=== PATIENT | male | born 1995 | race Caucasian/White ===

== ENCOUNTER 2020-11-28 10:25 | Emergency (ER) | payer BC, SELFPAY ==
[2020-11-28 10:30] VITALS: BP 127/64; PULSE 63; RESP 18; TEMP 36.7; O2SAT 100
--- NOTE | 2020-11-28 10:51 | ED.EYEPROB ---
HPI - Eye Problem General Chief complaint: Eye Problems Stated complaint: swollen eye Time Seen by Provider: 11/28/20 10:43 Source: patient and RN notes reviewed Mode of arrival: ambulatory Limitations: no limitations History of Present Illness HPI Narrative: Patient presents today complaining of bilateral eye swelling, itching since yesterday. States the right eye started swelling before the left eye. Denies injury, pain, foreign body sensation, drainage. States due to a previous injury, he uses lubricating drops that he gets [id number]. He has been using Zyrtec occasionally, which she took this morning for seasonal allergies. chief complaint: other (Bilateral eye swelling and itching) Related Data Home Medications Medication Instructions Recorded Confirmed No Home Medications 11/28/20 11/28/20 Allergies Allergy/AdvReac Type Severity Reaction Status Date / Time No Known Allergies Allergy Verified 11/28/20 10:40 Review of Systems Review of Systems: Narrative: CONSTITUTIONAL: Denies body aches, fever, chills, or sweats. EYES: Denies visual changes, redness, or discharge.+ Bilateral eye swelling and itching ENT: Denies rhinorrhea, congestion, sore throat, or otalgia. CARDIOVASCULAR: Denies chest pain, palpitations, or edema. RESPIRATORY: Denies cough or dyspnea. GASTROINTESTINAL: Denies abdominal pain, nausea, vomiting, or diarrhea. GENITOURINARY: Denies dysuria or hematuria. SKIN: Denies rash, itching, or wounds. MUSCULOSKELETAL: Denies back pain, joint pain, or myalgia. NEUROLOGIC: Denies headache, numbness, tingling, or weakness. PSYCH: Denies depression or anxiety. [facility] Past Medical History Medical History (Updated 11/28/20 @ 11:07 by Ronna Marion, [facility], ) Seasonal allergies Comments At time of signature, I have reviewed and agree with nursing past medical, surgical, social and family history unless otherwise noted. Please see nursing chart for further information. There is no relevant family history pertinent to the presenting complaint Exam Narrative: Exam Narrative: GENERAL: Well-appearing, well-nourished, and in no acute distress. HEAD: Normocephalic, atraumatic. EYES: EOMI. PERRL. Bilateral slightly injected conjunctiva with chemosis. Bilateral upper and lower eyelids are mild to moderately edematous. Lashes normal. No drainage. ENT: Mucous membranes pink and moist. Nares clear. No rhinorrhea. TMs normal bilaterally. Throat normal. Uvula midline. NECK: Normal AROM. Supple. No lymphadenopathy. CHEST: No respiratory distress. EXTREMITIES: Normal range of motion. No edema. SKIN: Warm, dry, no rash. Capillary refill normal. Normal skin turgor. NEURO: No focal deficits. Alert and oriented x3. Gait steady. PSYCH: Normal affect. No signs of depression or anxiety. Course Vital Signs Vital signs: Vital Signs Temperature 98.1 F 11/28/20 10:30 Pulse Rate 63 11/28/20 10:30 Respiratory Rate 18 11/28/20 10:30 Blood Pressure 127/64 11/28/20 10:30 Pulse Oximetry 100 11/28/20 10:30 Temperature 98.1 F 11/28/20 10:30 Pulse Rate 63 11/28/20 10:30 Respiratory Rate 18 11/28/20 10:30 Blood Pressure 127/64 11/28/20 10:30 Pulse Oximetry 100 11/28/20 10:30 Reviewed. Pt has been instructed to follow up with his PCP regarding his elevated blood pressure today. MDM - Eye Problem Differential Diagnosis Differential diagnosis: Likely corneal abrasion, conjunctivitis and periorbital cellulitis Critical Care Time Critical Care Time Critical Care Time: No Discharge Plan Discharge Clinical Impression: Acute allergic conjunctivitis of both eyes Patient Disposition: Home, Self-Care Condition: Stable Instructions: Conjunctivitis (ED) Additional Instructions: Your symptoms are likely due to environmental allergies. Continue a daily antihistamine such as Zyrtec, Claritin, Tarsha, or Xyzal. Try an antihistamine eyedrop such as Zaditor or
== END 2020-11-28 10:55 | disposition home or self-care (01) ==
PROVIDERS: Emergency Provider Nurse Practitioner; PCP Internal Medicine
DX: H10.13 Acute atopic conjunctivitis, bilateral (principal)
CPT/HCPCS: 99202; G0463